=== PATIENT | female | born 1950 | race Caucasian/White ===

== ENCOUNTER 2017-11-09 07:22 | Day surgery (SDC) | payer OTHER ==
[2017-11-09 08:21] LABS: ADD MAN DIFF? NO
[2017-11-09 08:34] LABS: BASOPHIL # 0.1 10^3/ul (0.0-0.1); BASOPHILS % 0.6 % (0.0-2.0); EOSINOPHILS # 0.2 10^3/ul (0.0-0.5); EOSINOPHILS % 2.4 % (0.0-7.0); HEMATOCRIT 42.3 % (37.0-47.0); HEMOGLOBIN 13.5 g/dl (12.0-16.0); LYMPHOCYTES # 2.5 10^3/ul (0.8-2.9); LYMPHOCYTES % 28.8 % (15.0-51.0); MEAN CORPUSCULAR HEMOGLOBIN 29.3 pg (29.0-33.0); MEAN CORPUSCULAR HGB CONC 31.9 g/dl (32.0-37.0); MEAN PLATELET VOLUME 10.6 fl (7.4-10.4); MONOCYTE # 0.7 10^3/ul (0.3-0.9); MONOCYTES % 8.2 % (0.0-11.0); NEUTROPHIL # 5.2 10^3/ul (1.6-7.5); NEUTROPHILS % 59.1 % (39.0-77.0); PLATELET COUNT 200 10^3/UL (140-415); RED CELL DISTRIBUTION WIDTH 13.6 % (11.5-14.5)
[2017-11-09 08:34] LABS: WHITE BLOOD COUNT 8.8 10^3/ul (4.8-10.8)
[2017-11-09] MEDS ORDERED: HEPARIN 1000 UNITS/ML 10 ML INJ (08:34)
[2017-11-09] MEDS ORDERED: IODIXANOL LOCM 100 ML BTL (08:34)
[2017-11-09] MEDS ORDERED: LIDOCAINE 1% (MDV) 20 ML INJ (08:34)
[2017-11-09] MEDS ORDERED: MIDAZOLAM 1 MG/ML 2 ML INJ ×2 (08:35→12:59)
[2017-11-09] MEDS ORDERED: FENTAnyl 50 MCG/ML VIAL ×2 (08:35→12:59)
[2017-11-09] MEDS ORDERED: VERAPAMIL 5 MG INJ ×2 (08:35→13:51)
[2017-11-09] MEDS ORDERED: NITROGLYCERIN (IC) 100 MCG/ML INJ (08:35)
[2017-11-09 08:42] LABS: INR 0.83; PROTIME 11.5 Sec (11.9-14.9); PT RATIO 0.9
[2017-11-09 08:43] LABS: PARTIAL THROMBOPLASTIN TIME 26.4 Sec (25.0-35.0)
[2017-11-09 09:09] LABS: ANION GAP 17 (8-16); CARBON DIOXIDE 30 mmol/L (21-31); CHLORIDE 102 mmol/L (97-110); CHOL/HDL RATIO 1.9 RATIO; CHOLESTEROL 176 mg/dl (100-200); GLUCOSE 104 mg/dl (70-220); HDL CHOLESTEROL 90 mg/dl (35-98); LDL CHOLESTEROL,CALCULATED 72 mg/dl; TRIGLYCERIDES 69 mg/dl (0-149)
[2017-11-09 09:14] LABS: BLOOD UREA NITROGEN 16 mg/dl (7-20); CALCIUM 9.3 mg/dl (8.4-10.2); CREATININE 0.67 mg/dl (0.44-1.00); POTASSIUM 4.2 mmol/L (3.5-5.1); SODIUM 145 mmol/L (135-144)
[2017-11-09] MEDS ORDERED: DIPHENHYDRAMINE 50 MG CAP PO (12:30)
[2017-11-09] MEDS ORDERED: FAMOTIDINE 20 MG TAB PO (12:30)
[2017-11-09] MEDS ORDERED: SOD CHLORIDE 0.45% 1,000 ML IV (12:30)
[2017-11-09] MEDS ORDERED: DIAZEPAM 5 MG TAB PO (12:30)
[2017-11-09] MEDS ORDERED: AL HYDROX/MG HYDROX/SIMETH 30 ML CUP PO (14:30)
[2017-11-09] MEDS ORDERED: morphine 2 MG INJ IV (14:30)
[2017-11-09] MEDS ORDERED: ONDANSETRON 4 MG INJ IV (14:30)
[2017-11-09] MEDS ORDERED: ACETAMINOPHEN 325 MG TAB PO (14:30)
[2017-11-09] MEDS: SOD CHLORIDE 0.9% 1,000 ML IV (14:31)
== END 2017-11-09 17:26 | disposition home or self-care (01) ==
LOC: SDS 07:22
DX: I25.10 Atherosclerotic heart disease of native coronary artery without angina pectoris (principal); R94.39 Abnormal result of other cardiovascular function study; I10 Essential (primary) hypertension; E78.5 Hyperlipidemia, unspecified
CPT/HCPCS: 71045; 80048; 80061; 85025; 85610; 85730; 93005; 93458